=== PATIENT | male | born 1980 | race African-American/Black ===

== ENCOUNTER 2022-03-11 04:03 | Day surgery (SDC) | payer BC ==
[2022-03-07 13:50] VITALS: BMI 27.2
[2022-03-11] MEDS ORDERED: MIDAZOLAM HCL 2 MG/2 ML SINGLE DOSE VIAL ONE (14:28)
[2022-03-11] MEDS ORDERED: KETOROLAC TROMETHAMINE 30 MG/1 ML VIAL ONE (14:32)
[2022-03-11 15:06] VITALS: RESP 16
[2022-03-11 15:42] VITALS: BP 103/67; PULSE 72; TEMP 97.3
== END 2022-03-11 15:30 | disposition home or self-care (01) ==
LOC: JASU-SURG 04:03
PROVIDERS: ATTEND Urology
PROC: 0TF3XZZ Fragmentation in Right Kidney Pelvis, External Approach (ICD-10-PCS; principal; 2022-03-11 13:00)
DX: N20.0 Calculus of kidney (principal)